=== PATIENT | female | born 1975 | race Hispanic/Latino ===

== ENCOUNTER 2019-03-17 20:37 | Emergency (ER) | payer MEDICAID, SELFPAY ==
--- NOTE | 2019-03-17 21:27 | RAD ---
LEFT ANKLE: 03/17/19 Three views. HISTORY: Injury. Soft tissue swelling is seen laterally. There is no evidence of fracture. There is a spur from the pl cordelia calcaneus. IMPRESSION: No acute fracture identified. POS: [facility]
--- NOTE | 2019-03-17 21:36 | RAD ---
LEFT TIBIA AND FIBULA: 03/17/19 Two views. HISTORY: Injury. No evidence of fracture. No osseous abnormality identified. IMPRESSION: No acute findings. POS: [facility]
[2019-03-17] MEDS ORDERED: traMADol HCl 50 MG TAB ONE (21:46)
== END 2019-03-17 21:56 | disposition home or self-care (01) ==
LOC: NAV ERS 20:37
DX: S93.412A Sprain of calcaneofibular ligament of left ankle, initial encounter (principal); E11.9 Type 2 diabetes mellitus without complications; E78.5 Hyperlipidemia, unspecified; E78.00 Pure hypercholesterolemia, unspecified; I10 Essential (primary) hypertension; W17.89XA Other fall from one level to another, initial encounter

== ENCOUNTER 2022-03-25 14:06 | Emergency (ER) | payer SELFPAY | END 2022-03-25 16:08 | disposition home or self-care (01) | LOC: NAV ERS 14:06 | DX: S93.402A Sprain of unspecified ligament of left ankle, initial encounter (principal); S93.602A Unspecified sprain of left foot, initial encounter; E11.9 Type 2 diabetes mellitus without complications; I10 Essential (primary) hypertension; E78.00 Pure hypercholesterolemia, unspecified; X50.1XXA Overexertion from prolonged static or awkward postures, initial encounter ==